=== PATIENT | female | born 1975 | race Caucasian/White ===

== ENCOUNTER 2023-06-05 07:44 | Outpatient (CLI) | payer BC, SELFPAY ==
--- NOTE | 2023-06-05 07:53 | MM_ITS ---
WS: [id number] SCREENING DIGITAL BREAST TOMOSYNTHESIS MAMMOGRAM WITH CAD HISTORY: Z12.39 - Encounter for other screening for malignant neop... COMPARISON: None available. Bilateral CC and MLO with tomosynthesis and synthetic mammography submitted. Computer aided detection analyzed. Breast composition: There are scattered areas of fibroglandular density. There is a focal area of mil d distortion in the LEFT inferior and lateral breast. Not definitely identified on the lateral projec tion. Additional imaging is necessary. RIGHT breast is negative. IMPRESSION: MM/[place] [id number] BI-RADS: 0-Incomplete: Need additional imaging evaluation FOLLOW UP: Need Additional Imaging LEFT breast: Spot compression views (CC ). True ML. Ultrasound to follow if abn ormality persists.
== END 2023-06-05 07:45 | disposition home or self-care (01) ==
LOC: MOBLMAM 07:52
PROVIDERS: Visit Provider Nurse Practitioner Women's Health
DX: Z12.31 Encounter for screening mammogram for malignant neoplasm of breast (principal)
CPT/HCPCS: 77063; 77067

== ENCOUNTER 2023-07-17 08:26 | Day surgery (SDC) | payer BC, SELFPAY ==
[2023-07-17 08:40] VITALS: BMI 35.7
[2023-07-17] MEDS: sodium chloride 0.9% 1,000 ML 30 ML IV (08:43)
[2023-07-17 08:45] VITALS: BP 148/96; PULSE 91; RESP 16; TEMP 36.3; O2SAT 100
--- NOTE | 2023-07-17 09:02 | PM.HP ---
Providers/Chief Complaint Chief Complaint: Colon cancer screening History of Present Illness Katt Shah is a 47 year old female Review of Systems General: Reports: 10 or more systems reviewed and unremarkable except in HPI and below Medications/Allergies Home Medications Medication Instructions Recorded Confirmed Last Taken Type No Known Home Medications 07/15/23 07/17/23 Unknown History Allergies Allergy/AdvReac Type Severity Reaction Status Date / Time No Known Allergies Allergy Verified 07/17/23 08:39 PFSH Acute PFSH: Medical History (Updated 07/17/23 @ 09:03 by Chucho Ba DO) No pertinent past medical history neghx: dm, thyroid, dvt/pe PCP: does not have one Surgical History (Updated 07/17/23 @ 09:03 by Chucho Ba DO) History of cholecystectomy History of mandibular surgery TNJ surgery History of tonsillectomy S/P partial hysterectomy Family History Mother Colon polyp Social History Smoking and tobacco/nicotine status: current every day tobacco/nicotine user Alcohol intake: never Vitals/I&O/Wt Last Vital Signs Temp 97.3 F L 07/17/23 08:45 Pulse 91 07/17/23 08:45 Resp 16 07/17/23 08:45 BP 148/96 07/17/23 08:45 Pulse Ox 100 07/17/23 08:45 O2 Del Method Room Air 07/17/23 08:45 Weight last 48 hrs Weight 235 lb A&P Assessment and plan (1) Colon cancer screening: Plan Colonoscopy Attestations Medical Necessity Statement*: Home Coding Level of Care Code Acute Code for Chg Fwd Diagnoses Colon cancer screening Z12.11
--- NOTE | 2023-07-17 09:06 | ANES.PREANE2 ---
Pre-Anesthetic Assessment Height/Weight: Height 1.73 m Weight 106.594 kg Temp Pulse Resp BP Pulse Ox O2 Del Method 97.3 F L 91 16 148/96 100 Room Air 07/17/23 08:45 07/17/23 08:45 07/17/23 08:45 07/17/23 08:45 07/17/23 08:45 07/17/23 08:45 Preop Diagnosis: Screening Operation Date: 07/17/23 09:30 Proposed Procedures p Colonoscopy 65125,Z12.11(Not Applicable) - Chucho Ba DO Familial anesthetic complications: PONV Was Beta [place] taken within 24 hours: N/A Was Clonidine taken within 24 hours: N/A Last intake: Intake Last Liquid Date 07/16/23 Last Liquid Time 22:00 Last Solid Date 07/15/23 Last Solid Time 18:00 Social Tobacco (1.5 ppd) and No alcohol Exam alert, oriented x 3, clear to auscultation bilaterally and regular rate & rhythm Airway Submandibular: within normal limits (hx TMJ) Mallampati: Class II Dentition: full Pulmonary None reported CV/HEM Hypertension (no insurance, untreated) None reported Hepatic None reported GI None reported Metabolic None reported Musc/skel None reported Neuropsych None reported Anesthetic Plan ASA status: 2 Anesthesia: MAC Medications/Allergies Home Medications Medication Instructions Recorded Confirmed Last Taken Type No Known Home Medications 07/15/23 07/17/23 Unknown History Allergies Allergy/AdvReac Type Severity Reaction Status Date / Time No Known Allergies Allergy Verified 07/17/23 08:39 Current Medications Generic Name Dose Route Start Last Admin Trade Name Freq PRN Reason Stop Dose Admin Sodium Chloride 1,000 mls @ 30 mls/hr 07/17/23 08:30 07/17/23 08:43 Sodium Chloride 0.9% IV 07/18/23 08:29 30 mls/hr .Q24H HERMAN Administration PFSH Anesthesia Medical History (Updated 07/17/23 @ 09:03 by Cuhcho Ba DO) No pertinent past medical history neghx: dm, thyroid, dvt/pe PCP: does not have one Surgical History (Updated 07/17/23 @ 09:03 by Chucho Ba DO) History of cholecystectomy History of mandibular surgery TNJ surgery History of tonsillectomy S/P partial hysterectomy Family History Mother Colon polyp Social History Smoking and tobacco/nicotine status: current every day tobacco/nicotine user Alcohol intake: never Data Anesthesia Cardiac Studies: No Data to Display
[2023-07-17 09:35] VITALS: BP 118/67; PULSE 72; RESP 12; TEMP 36.6; O2SAT 95
[2023-07-17 09:46] VITALS: BP 112/81; PULSE 70; RESP 18; O2SAT 99
--- NOTE | 2023-07-17 10:00 | ANE.PACU2 ---
Inpatient post-anesthesia follow up: Airway intact: Yes Vital signs: Temperature 97.9 F Pulse Rate 70 Respiratory Rate 18 Blood Pressure 112/81 Pulse Oximetry 99 Oxygen Delivery Me thod Room Air Oxygen Flow Rate Fraction of Inspir ed Oxygen Hydration adequate: Yes Nausea and vomiting: No Pain level: 1 Mental status: Baseline
== END 2023-07-17 10:03 | disposition home or self-care (01) ==
PROVIDERS: Visit Provider Surgery
PROC: 0DJD8ZZ Inspection of Lower Intestinal Tract, Via Natural or Artificial Opening Endoscopic (ICD-10-PCS; CPT 45378; principal; 2023-07-17 09:30)
DX: Z12.11 Encounter for screening for malignant neoplasm of colon (principal); Z90.49 Acquired absence of other specified parts of digestive tract; F17.200 Nicotine dependence, unspecified, uncomplicated; I10 Essential (primary) hypertension
CPT/HCPCS: 45378; J2704; J3490; J7030

== ENCOUNTER → 2024-06-08 09:41 | Outpatient (BNVA) | payer BC, SELFPAY | PROVIDERS: Visit Provider Nurse Practitioner Women's Health | DX: Z12.39 Encounter for other screening for malignant neoplasm of breast (principal); R30.0 Dysuria | CPT/HCPCS: 81000 ==

== ENCOUNTER 2024-06-19 08:53 | Outpatient (CLI) | payer BC, SELFPAY ==
--- NOTE | 2024-06-19 09:00 | MM_ITS ---
WS: [id number] BILATERAL SCREENING DIGITAL TOMOSYNTHESIS MAMMOGRAM WITH CAD HISTORY: Z12.39 - Encounter for other screening for malignant neop... COMPARISON: 06/05/2023, 10/11/2020 Bilateral CC and MLO views with tomosynthesis and synthetic mammography submitted. Computer aided det ection analyzed. Breast composition: There are scattered areas of fibroglandular density. No suspicious masses, microc alcifications or architectural distortion. MM/MM scr BI tomosynthesis [id number] IMPRESSION: BI-RADS: 1 - Negative. FOLLOW UP: 1 Year Follow-up
== END 2024-06-19 08:54 | disposition home or self-care (01) ==
LOC: RAD 08:55
PROVIDERS: Visit Provider Nurse Practitioner Women's Health
DX: Z12.31 Encounter for screening mammogram for malignant neoplasm of breast (principal); R92.323 Mammographic fibroglandular density, bilateral breasts
CPT/HCPCS: 77063; 77067

== ENCOUNTER → 2025-06-10 10:13 | Outpatient (BNVA) | payer BC, SELFPAY | PROVIDERS: Visit Provider Nurse Practitioner Women's Health | DX: Z00.00 Encounter for general adult medical examination without abnormal findings (principal) | CPT/HCPCS: 80053; 82306; 82465; 83036; 83718; 83721; 84443; 85025 ==

== ENCOUNTER 2025-06-22 08:07 | Outpatient (CLI) | payer BC, SELFPAY ==
--- NOTE | 2025-06-22 08:20 | MM_ITS ---
WS: [id number] Bilateral screening 3D tomosynthesis digital mammogram, 06/22/2025 8:17 AM Clinical Data: Z12.39 - Encounter for other screening for malignant neop... Comparison: 06/19/2024, 06/05/2023, 10/11/2020, 08/10/2019. Findings: No spiculated masses or clustered calcifications are seen. There are no secondary signs of carcinoma. MM/MM scr BI tomosynthesis [id number] Impression: Negative bilateral mammogram unchanged. Recommend annual screening mammograms. BIRADS: 1 - Negative. FOLLOW UP: 1 Year Follow-up DENSITY: There are scattered areas of fibroglandular density. The CAD card checker was used
== END 2025-06-22 08:08 | disposition home or self-care (01) ==
LOC: RAD 08:08
PROVIDERS: Visit Provider Nurse Practitioner Women's Health
DX: Z12.31 Encounter for screening mammogram for malignant neoplasm of breast (principal); Z01.419 Encounter for gynecological examination (general) (routine) without abnormal findings; R92.323 Mammographic fibroglandular density, bilateral breasts
CPT/HCPCS: 77063; 77067